=== PATIENT | female | born 1980 | race Caucasian/White ===

== ENCOUNTER → 2016-10-02 | Outpatient (CLI) | payer BC ==
--- NOTE | 2016-10-02 17:49 | Diagnostic Imaging Report ---
EXAM: OB ultrasound. INDICATION: Dating. FINDINGS: There is a single intrauterine . The heart rate is 150 beats per minutes. The growth parameters are: Biparietal diameter: 16 weeks, 0 days Head circumference: 15 weeks, 6 days Abdominal circumference: 16 weeks, 2 days Femur length: 15 weeks, 4 days These average at: 16 weeks, 0 days. The MAGDY would be 03/19/17. This is concordant with LMP dating 15 weeks, 5 days. There is a posterior placenta seen that extends to the lower uterine segment. The cervix is 4.2 cm in length and is closed. There is a retroplacental hypoechoic lesion measuring 2.2 x 1.5 x 2.3 cm. No internal vascularity is seen. This is concerning for retroplacental hemorrhage. IMPRESSION: 1. Live intrauterine . 2. There is a 3.2 cm hypoechoic lesion posterior to the placenta concerning for retroplacental hemorrhage of indeterminate age. The results were called to Dr. Terry and voice message was left about the findings (by Dr. Tinoco) prior to dictation. Report faxed to Dr. Terry at 5:48 p.m. 10/02/2016/cb Dictated by: Dictated on workstation # [id number]
== END ==
LOC: RAD 16:22
PROVIDERS: ATTEND Obstetrics & Gynecology
DX: O26.841 Uterine size-date discrepancy, first trimester (principal)
CPT/HCPCS: 76805

== ENCOUNTER → 2016-10-09 | Outpatient (CLI) | payer BC ==
--- NOTE | 2016-10-09 18:11 | Diagnostic Imaging Report ---
INDICATION: Subchorionic hemorrhage. EXAMINATION: OB sonogram 14-40 weeks 10/09/2016. COMPARISON: Correlation made to the previous sonogram dated 10/02/2016. TECHNIQUE: Multiple real-time grayscale images were obtained over the gravid uterus. FINDINGS: The previously noted hypoechoic area posterior to the placenta is once again seen. It today measures 2.6 x 2.3 x 1.5 cm in size previously measuring 2.3 cm in greatest dimension. Overall, it demonstrates mild interval increase in size. It is more hyperechoic on today's examination. No new lesions identified. The maternal cervix is 4.6 cm in length. The tip of the placenta is approximately 1.9 cm from the internal cervical os. Again noted is a single intrauterine with a heart rate of approximately 140 beats per minute. Placenta is posterior. IMPRESSION: 1. Limited evaluation. Hyperechoic lesion noted posterior to the placenta has slightly increased in size. It is most likely a subchorionic hemorrhage. Continued short-term interval followup is recommended to exclude continued increase in size or other lesions. 2. Low-lying placental tip. Biometrical measurements are as follows: Biparietal 3.63 cm, age 17 weeks 1 days. Head circumference 13.74 cm, age 17 weeks 2 days. Abdominal circumference 10.47 cm, age 16 weeks 3 days. Femur length 2.02 cm, age 16 weeks 1 days. Sonographic estimate age: 16 weeks 6 days. Sonographic estimated date of delivery: 03/20/2017. Estimated Weight: 153 gm (+/- 22 gm). LMP percentile: 21%. heart rate: 140 beats per minute. number: 1 of 1. Dictated by: Dictated on workstation # [id number]
== END ==
LOC: RAD 17:09
PROVIDERS: ATTEND Obstetrics & Gynecology
DX: O46.92 Antepartum hemorrhage, unspecified, second trimester (principal); Z3A.17 17 weeks gestation of pregnancy
CPT/HCPCS: 76805

== ENCOUNTER 2017-03-13 06:09 | Inpatient (IN) | payer BC ==
[2017-03-13] VITALS (47 sets, daily range): BP systolic 105–146; BP diastolic 61–94
[~2017-03-13] VITALS: Ht 157.5 cm; Wt 71.7 kg
[2017-03-13] MEDS ORDERED: LEVO25TA2 PO (06:16)
[2017-03-13] MEDS ORDERED: PREN-142 PO (06:16)
[2017-03-13] MEDS ORDERED: FERR-84 PO (06:16)
[2017-03-13] MEDS ORDERED: OXYTOCIN/NORMAL SALINE 500 ML IV SCH ×2 (06:18→20:16)
[2017-03-13] MEDS ORDERED: MINERAL OIL CONCENTRATE 99.9% 15 ML UDC TOP PRN (06:30)
[2017-03-13] MEDS ORDERED: MISOPROSTOL 100 MCG (CYTOTEC) TAB PO ONE (06:45)
[2017-03-13] MEDS ORDERED: fentaNYL INJECTION 100 MCG/2 ML AMP IVP PRN (06:45)
[2017-03-13 06:47] LABS: BILIRUBIN,URINE NEGATIVE (NEGATIVE); KETONES,URINE NEGATIVE (NEGATIVE); LEUKOCYTE ESTERASE ,URINE NEGATIVE (NEGATIVE); NITRITE,URINE NEGATIVE (NEGATIVE); PH,URINE 7 (5-9); PROTEIN,URINE NEGATIVE (NEGATIVE); UROBILINOGEN,URINE NORMAL (NORMAL)
[2017-03-13] MEDS: D5 LR IV SOLUTION 1,000 ML IV SCH ×2 (06:48→12:44)
[2017-03-13 06:49] LABS: BASOPHILS % (AUTO) 0 % (0-10); EOSINOPHILS # (AUTO) 0.4 10^3/uL (0.0-0.3); EOSINOPHILS % (AUTO) 4 % (0-10); LYMPHOCYTES # (AUTO) 2.2 X 10^3 (1.0-4.0); LYMPHOCYTES % (AUTO) 19 % (12-44); MEAN CORPUSCULAR HEMOGLOBIN 32 PG (25-34); MEAN CORPUSCULAR HGB CONC 34 G/DL (32-36); MEAN CORPUSCULAR VOLUME 94 FL (80-99); MEAN PLATELET VOLUME 9.9 FL (7.4-10.4); MONOCYTES % (AUTO) 9 % (0-12); NEUTROPHILS # (AUTO) 7.9 X 10^3 (1.8-7.8); NEUTROPHILS % (AUTO) 69 % (42-75); PLATELET COUNT 308 10^3/uL (130-400); RED CELL DISTRIBUTION WIDTH 14.5 % (10.0-14.5); WHITE BLOOD COUNT 11.4 10^3/uL (4.3-11.0)
[2017-03-13 07:07] LABS: ALANINE AMINOTRANSFERASE 13 U/L (0-55); ALBUMIN 3.6 GM/DL (3.2-4.5); ANION GAP 14 MMOL/L (5-14); ASPARTATE AMINO TRANSFERASE 20 U/L (5-34); BILIRUBIN,TOTAL 0.3 MG/DL (0.1-1.0); BLOOD UREA NITROGEN 7 MG/DL (7-18); BUN/CREATININE RATIO 9; CALCIUM 9.8 MG/DL (8.5-10.1); CARBON DIOXIDE 18 MMOL/L (21-32); CHLORIDE 107 MMOL/L (98-107); CREATININE SERUM 0.74 MG/DL (0.60-1.30); GFR ESTIMATED > 60; GLUCOSE 100 MG/DL (70-105); LACTATE DEHYDROGENASE 156 U/L (125-220); POTASSIUM 3.6 MMOL/L (3.6-5.0); SODIUM 139 MMOL/L (135-145); TOTAL PROTEIN 6.7 GM/DL (6.4-8.2); URIC ACID 5.6 MG/DL (2.6-7.2)
[2017-03-13 07:18] LABS: WBC,URINE RARE /HPF
[2017-03-13] MEDS ORDERED: INFLUENZA TRIvalent 2017-2018 0.5 ML/45 MCG SYR IM ONE (10:00)
[2017-03-13] MEDS ORDERED: LACTATED RINGERS 1,000 ML IV ONE ×2 (10:56→11:52)
[2017-03-13] MEDS ORDERED: SUFENTA 0.6MCG/ML BUPIVA 0.125 100 ML ONE (11:01)
[2017-03-13] MEDS ORDERED: fentaNYL INJECTION 100 MCG/2 ML AMP ONE ×2 (11:15→20:06)
[2017-03-13] MEDS ORDERED: BUPIVACAINE 0.25% 30 ML (SENSORCAINE) VIAL ONE (11:15)
[2017-03-13] MEDS ORDERED: EPIDURAL (SUFENTA 0.6MCG/ML BUPIVA 0.125%) 100 ML BAG EPI SCH (12:00)
[2017-03-13] MEDS ORDERED: CATHETER FLUSH 10 ML SYR IV PRN (12:00)
[2017-03-13] MEDS ORDERED: NALOXONE 0.4 MG/ML 1 ML (NARCAN) VIAL IV PRN (12:00)
[2017-03-13] MEDS ORDERED: diphenhydrAMINE 50 MG/ML INJ (BENADRYL) IV PRN (12:00)
[2017-03-13] MEDS ORDERED: METOCLOPRAMIDE INJ 10 MG/2 ML (REGLAN) ONE ×2 (12:57→19:07)
[2017-03-13] MEDS ORDERED: CITRIC ACID/SOB CIT (BICITRA) 30 ML UDC ONE ×2 (12:57→19:07)
[2017-03-13] MEDS ORDERED: FAMOTIDINE 20MG/2ML IV (PEPCID) ONE ×2 (12:58→19:07)
[2017-03-13] MEDS ORDERED: ceFAZolin 2 GM/50 ML NS 50 ML ONE ×2 (12:58→19:07)
[2017-03-13] MEDS ORDERED: NS (IVPB) 0 ML ONE ×3 (13:00→13:05)
[2017-03-13] MEDS ORDERED: AZITHROMYCIN 500 MG (ZITHROMAX) VIAL ONE ×2 (13:00→19:10)
[2017-03-13] MEDS ORDERED: AZITHROMYCIN INJECTION 500 MG in NS (IVPB) 250 ML IV ONE (13:15)
[2017-03-13] MEDS ORDERED: ceFAZolin 2 GM/50 ML NS 50 ML IV ONE ×2 (13:15→18:00)
[2017-03-13] MEDS ORDERED: LACTATED RINGERS 1,000 ML IV PRN (13:47)
[2017-03-13] MEDS ORDERED: METOCLOPRAMIDE INJ 10 MG/2 ML (REGLAN) IV ONE (14:00)
[2017-03-13] MEDS ORDERED: CATHETER FLUSH 10 ML SYR IV SCH ×2 (14:00→22:00)
[2017-03-13] MEDS ORDERED: FAMOTIDINE 20MG/2ML IV (PEPCID) IV ONE (14:00)
[2017-03-13] MEDS ORDERED: CITRIC ACID/SOB CIT (BICITRA) 30 ML UDC PO ONE (14:00)
[2017-03-13] MEDS: ONDANSETRON 4 MG/2 ML (SDV) Z0FRAN IV PRN ×2 (14:22→19:31)
--- NOTE | 2017-03-13 18:23 | Progress Note-Standard ---
Standard Progress Note Progress Notes/Assess & Plan Date Seen by Provider: Mar 13, 2017 Time Seen by Provider: 08:45 Progress/Assessment & Plan patient was admitted this morning for induction of labor due to mild preeclampsia. she received 1 dose of oral Cytotec and then had artificial rupture of membranes with clear fluid. she has had regular contractions with cervical dilation continuing. she did have an epidural placed and had resultant hypotension causing late decelerations. However this didn't follow-up with good return to baseline. However she has been 8 cm for 3 hours. We did start Pitocin but after approximately 1 hour on Pitocin she had a long prolonged late deceleration and a long contraction. Pitocin was discontinued. I am having to proceed with another emergency so the Pitocin will be left off and patient monitored for decelerations. Plan will likely be to proceed with primary C- section due to arrested dilatation despite adequate contractions, and intolerance to labor. She had not required antihypertensives during labor though her blood pressures have been labile. Laboratory Tests Test 03/13/17 06:30 Range/Units White Blood Count 11.4 H 4.3-11.0 10^3/uL Red Blood Count 3.40 L 4.35-5.85 10^6/uL Hemoglobin 10.7 L 11.5-16.0 G/DL Hematocrit 32 L 35-52 % Mean Corpuscular Volume 94 80-99 FL Mean Corpuscular Hemoglobin 32 25-34 PG Mean Corpuscular Hemoglobin Concent 34 32-36 G/DL Red Cell Distribution Width 14.5 10.0-14.5 % Platelet Count 308 130-400 10^3/uL Mean Platelet Volume 9.9 7.4-10.4 FL Neutrophils (%) (Auto) 69 42-75 % Lymphocytes (%) (Auto) 19 12-44 % Monocytes (%) (Auto) 9 0-12 % Eosinophils (%) (Auto) 4 0-10 % Basophils (%) (Auto) 0 0-10 % Neutrophils # (Auto) 7.9 H 1.8-7.8 X 10^3 Lymphocytes # (Auto) 2.2 1.0-4.0 X 10^3 Monocytes # (Auto) 1.0 0.0-1.0 X 10^3 Eosinophils # (Auto) 0.4 H 0.0-0.3 10^3/uL Basophils # (Auto) 0.0 0.0-0.1 10^3/uL Urine Color YELLOW Urine Clarity CLEAR Urine pH 7 5-9 Urine Specific [place] 1.005 L 1.016-1.022 Urine Protein NEGATIVE NEGATIVE Urine Glucose (UA) NEGATIVE NEGATIVE Urine Ketones NEGATIVE NEGATIVE Urine Nitrite NEGATIVE NEGATIVE Urine Bilirubin NEGATIVE NEGATIVE Urine Urobilinogen NORMAL NORMAL MG/DL Urine Leukocyte Esterase NEGATIVE NEGATIVE Urine RBC (Auto) 2+ H NEGATIVE Urine RBC RARE /HPF Urine WBC RARE /HPF Urine Squamous Epithelial Cells 5-10 /HPF Urine Crystals NONE /LPF Urine Bacteria TRACE /HPF Urine Casts NONE /LPF Urine Mucus NEGATIVE /LPF Urine Culture Indicated NO Sodium Level 139 135-145 MMOL/L Potassium Level 3.6 3.6-5.0 MMOL/L Chloride Level 107 98-107 MMOL/L Carbon Dioxide Level 18 L 21-32 MMOL/L Anion Gap 14 5-14 MMOL/L Blood Urea Nitrogen 7 7-18 MG/DL Creatinine 0.74 0.60-1.30 MG/DL Estimat Glomerular Filtration Rate > 60 BUN/Creatinine Ratio 9 Glucose Level 100 70-105 MG/DL Uric Acid 5.6 2.6-7.2 MG/DL Calcium Level 9.8 8.5-10.1 MG/DL Total Bilirubin 0.3 0.1-1.0 MG/DL Aspartate Amino Transf (AST/SGOT) 20 5-34 U/L Alanine Aminotransferase (ALT/SGPT) 13 0-55 U/L Alkaline Phosphatase 156 H 40-136 U/L Lactate Dehydrogenase 156 125-220 U/L Total Protein 6.7 6.4-8.2 GM/DL Albumin 3.6 3.2-4.5 GM/DL We'll proceed with primary . Risks include but are not limited to bleeding, infection, injury to bowel bladder and ureter. We will use prophylactic Ancef and Zithromax as she has been ruptured. Consents have been signed. JODEE THORPE DO Mar 13, 2017 6:23 pm
[2017-03-13] MEDS ORDERED: NS (IVPB) 250 ML ONE (19:11)
[2017-03-13] MEDS ORDERED: BUPIVACAINE 0.5% 30 ML (SENSORCAINE) VIAL ONE (20:06)
[2017-03-13] MEDS ORDERED: LIDOCAINE PF 2% 5 ML (XYLOCAINE) VIAL ONE (20:06)
[2017-03-13] MEDS ORDERED: D5 LR IV SOLUTION 1,000 ML IV SCH (20:16)
--- NOTE | 2017-03-13 20:19 | Cesarean Section Operative ---
Procedure Procedure Note Pre-operative Diagnosis: Taty Dailey is a 36 /Para 1 /0 , Gestational Age mild preeclampsia, arrest of active phase, intolerance to labor Post-operative Diagnosis: same Procedure: primary low transverse section Physician: TATY THORPE Staffing Rn: ELI Colvin Estimated blood loss: 600 mL Disposition: stable Findings: Viable male , Apgars 8/9, weight 7#12oz, intact placenta, 3vc, normal appearing uterus, tubes, and ovaries. nuchal cord delivered through Indications:Taty Dailey is a 36 /Para 1 /0 ,Gestational Age mild preeclampsia, arrest of active phase, intolerance to labor Procedure Details: The patient was seen in pre-op and the procedure was discussed with the patient in full, including the risks, benefits, and alternatives. All questions were answered. The patient was taken to the operating room and a time out was performed, verifying patient and procedure. After spinal anesthesia was placed by our anesthesia colleagues, the patient was placed in the dorsal supine with leftward tilt for uterine displacement.~ Her abdomen was then prepped and draped in the typical sterile fashion. A Pfannenstiel skin incision was made using a scalpel and carried down through the underlying fascia. The fascia was incised in the midline and tented up using Florina clamps. On both the inferior and superior fascia side the rectus muscle was dissected off bluntly and sharply using Pride scissors. The peritoneum was identified and entered bluntly in the midline. This was then stretched laterally using manual strength. After entering the abdominal cavity and confirming lack of intraperitoneal adhesions, a large Armond retractor was placed and the lower uterine segment was visualized. The bladder was edematous and not completely emptied due to pressure from the head. A scalpel was utilized to make a low transverse uterine incision. The 's head was grasped and brought to the level of the incision. was delivered without difficulty with assistance of the silastic suction. Mouth and nares were suctioned with bulb suction. After the umbilical cord was clamped and cut, the was handed off to the pediatric staff. A sample of cord blood was then obtained. The placenta was delivered intact via uterine massage. The uterus was cleared of all clots and debris. The uterine incision was closed using 0 Vicryl in a running locked fashion. A second imbricated layer was placed using 0 Vicryl in a running fashion as well. The bilateral tubes and ovaries appeared normal. Theabdominal gutters were cleared of all clots and debris. A final check of the uterine incision showed it to be hemostatic. Intercede was placed. The peritoneum was closed using 3-0 Vicryl in a running fashion. The fascia was closed with 0 Vicryl in a running fashion. The subcutaneous space was hemostatic , and irrigated. The subcutaneous space was closed with 3-0 Vicryl in several single interrupted stitches. The skin was then closed using 4-0 Monocryl in a running subcuticular fashion. The skin edges were reapproximated together and were hemostatic. A pressure dressing was applied. All sponge, lap and needle counts were correct at the end of the procedure per nursing. Vitals - Labs Vital Signs - I&O Vital Signs Date Time Temp Pulse Resp B/P (MAP) Pulse Ox O2 Delivery O2 Flow Rate FiO2 03/13/17 19:00 94 18 124/79 Room Air 03/13/17 18:45 90 18 120/72 Room Air 03/13/17 18:30 82 18 128/72 Room Air 03/13/17 18:15 98.8 81 18 119/71 Room Air 03/13/17 18:00 83 18 109/61 100 Room Air 03/13/17 17:45 98.9 88 18 114/70 97 Room Air 03/13/17 17:30 85 18 124/75 100 Room Air 03/13/17 17:15 85 18 124/76 95 Room Air 03/13/17 17:00 100 18 119/76 99 Room Air 03/13/17 16:45 82 18 123/73 99 Room Air 03/13/17 16:30 86 18 127/72 99 Room Air 03/13/17 16:15 99.0 88 18 113/68 100 Room Air 03/13/17 16:00 85 18 112/67 99 Room Air 03/13/17 15:45 85 18 113/64 99 Room Air 03/13/17 15:30 89 18 109/74 99 Room Air 03/13/17 15:15 99.1 85 18 109/68 99 Room Air 03/13/17 15:00 85 18 112/69 97 Room Air 03/13/17 14:45 86 18 117/69 97 Room Air 03/13/17 14:30 98.7 91 18 120/75 100 Room Air 03/13/17 14:15 91 18 99 Room Air 03/13/17 14:00 96 18 124/70 100 Room Air 03/13/17 13:45 98.0 90 18 123/69 100 Non Rebreather 10.00 03/13/17 13:30 82 18 123/76 100 Non Rebreather 10.00 03/13/17 13:15 89 18 110/69 100 Non Rebreather 10.00 03/13/17 13:00 94 18 117/74 100 Non Rebreather 10.00 03/13/17 12:45 97.6 94 18 121/73 100 Non Rebreather 10.00 03/13/17 12:30 80 18 121/74 100 Non Rebreather 10.00 03/13/17 12:15 113 18 100 Non Rebreather 10.00 03/13/17 12:00 85 18 105/64 98 Room Air 03/13/17 11:45 98.4 91 18 118/81 98 Room Air 03/13/17 11:41 129 18 124/71 100 Room Air 03/13/17 11:34 99 18 132/84 100 Room Air 03/13/17 11:32 91 18 141/84 100 Room Air 03/13/17 11:30 97 18 146/89 100 Room Air 03/13/17 11:30 86 18 140/67 Room Air 03/13/17 11:27 85 18 140/67 100 Room Air 03/13/17 11:23 96 18 130/81 Room Air 03/13/17 11:00 81 18 125/78 Room Air 03/13/17 10:30 99.1 82 18 128/86 Room Air 03/13/17 09:58 96 18 134/90 Room Air 03/13/17 09:30 102 18 132/94 Room Air 03/13/17 08:30 86 18 132/82 Room Air 03/13/17 08:00 98.1 96 18 121/77 Room Air 03/13/17 07:30 98.4 99 18 136/86 Room Air I & O 03/14/17 07:00 Intake Total 3000 ml Balance 3000 ml Labs Laboratory Tests 03/13/17 06:30: White Blood Count 11.4H, Red Blood Count 3.40L, Hemoglobin 10.7L, Hematocrit 32L , Mean Corpuscular Volume 94, Mean Corpuscular Hemoglobin 32, Mean Corpuscular Hemoglobin Concent 34, Red Cell Distribution Width 14.5, Platelet Count 308, Mean Platelet Volume 9.9, Neutrophils (%) (Auto) 69, Lymphocytes (%) (Auto) 19, Monocytes (%) (Auto) 9, Eosinophils (%) (Auto) 4, Basophils (%) (Auto) 0, Neutrophils # (Auto) 7.9H, Lymphocytes # (Auto) 2.2, Monocytes # (Auto) 1.0, Eosinophils # (Auto) 0.4H, Basophils # (Auto) 0.0, Urine Color YELLOW, Urine Clarity CLEAR, Urine pH 7, Urine Specific [place] 1.005L, Urine Protein NEGATIVE , Urine Glucose (UA) NEGATIVE, Urine Ketones NEGATIVE, Urine Nitrite NEGATIVE, Urine Bilirubin NEGATIVE, Urine Urobilinogen NORMAL, Urine Leukocyte Esterase NEGATIVE, Urine RBC (Auto) 2+H, Urine RBC RARE, Urine WBC RARE, Urine Squamous Epithelial Cells 5-10, Urine Crystals NONE, Urine Bacteria TRACE, Urine Casts NONE, Urine Mucus NEGATIVE, Urine Culture Indicated NO, Sodium Level 139, Potassium Level 3.6, Chloride Level 107, Carbon Dioxide Level 18L, Anion Gap 14 , Blood Urea Nitrogen 7, Creatinine 0.74, Estimat Glomerular Filtration Rate > 60, BUN/Creatinine Ratio 9, Glucose Level 100, Uric Acid 5.6, Calcium Level 9.8 , Total Bilirubin 0.3, Aspartate Amino Transf (AST/SGOT) 20, Alanine Aminotransferase (ALT/SGPT) 13, Alkaline Phosphatase 156H, Lactate Dehydrogenase 156, Total Protein 6.7, Albumin 3.6 TATY THORPE DO Mar 13, 2017 20:19
[2017-03-13] MEDS ORDERED: TETANUS,DIPTH,PERTUSS P/F (BOOSTRIX) 0.5 ML VIAL IM SCH (20:30)
[2017-03-13] MEDS ORDERED: HYDROmorphone (DILAUDID) 2 MG/ML VIAL IVP PRN (20:30)
[2017-03-13] MEDS ORDERED: MEASLES,MUMPS,RUBELLA 1 EA INJ SC SCH (20:30)
[2017-03-13] MEDS ORDERED: OXYTOCIN/NORMAL SALINE 500 ML IV ONE (20:36)
[2017-03-13] MEDS ORDERED: PHENYLEPHRINE 100 MCG/ML 10 ML (ANESTHESIA) SYR ONE (20:59)
[2017-03-13] MEDS ORDERED: ONDANSETRON 4 MG/2 ML (SDV) Z0FRAN ONE (20:59)
[2017-03-13] MEDS: DOCUSATE SODIUM 100 MG (COLACE) CAP PO SCH (21:00)
[2017-03-13] MEDS: KETOROLAC 30 MG/ML VIAL IVP SCH (21:12)
[2017-03-13] MEDS ORDERED: KETOROLAC 30 MG/ML VIAL IVP ONE (21:30)
[2017-03-13] MEDS ORDERED: morphine INJ 10 MG/ML 1ML (SYR OR VIAL) IVP PRN (21:30)
[2017-03-13] MEDS ORDERED: DOCU100C37 PO (21:30)
[2017-03-13] MEDS ORDERED: PROMETHAZINE INJ 25 MG/ML (PHENERGAN) AMP IVP ONE (21:30)
[2017-03-13] MEDS ORDERED: IBUP-1773 PO (21:30)
[2017-03-13] MEDS ORDERED: HYDR-3812 PO (21:30)
--- NOTE | 2017-03-13 21:32 | Discharge Inst-Women's Service ---
Discharge Inst-Women's Serv Depart Medication/Instructions New, Converted or Re-Newed RX: RX on Chart Final Diagnosis subclinical hypothyroidism preeclampsia advanced maternal age primary c section arrest of active phase intolerance to labor Consults/Follow Up Additional Follow Up: Yes (1 week for inc check an bp check) Activity Activity: Activity as Tolerated (no lifting over 25 lbs) Driving Instructions: No Driving for 1 Week NO SMOKING: NO SMOKING Nothing Inside Vagina: No Douching, No [place], No Tampons Diet Discharge Diet: No Restrictions Symptoms to Report to : Bleeding Excessive, Pain Increased, Fever Over 101 Degrees F, Vaginal Bleeding Increase, Cramps in Feet or Legs, Vaginal Discharge Foul For Any Problems or Questions: Contact Your Physician Skin/Wound Care Infection Signs and Symptoms: Increased Redness, Foul Odor of Wound, Increased Drainage, Skin Itchy or Has a Rash, Increased Swelling, Temperature Above 101 F Operative Area Clean and Dry: Keep Incision Clean/Dry Stitches/[place]/Dermabond: Dermabond Bathing Instructions: JODEE Syed DO Mar 13, 2017 21:32
[2017-03-14 00:15] VITALS: BP 103/68
[2017-03-14] MEDS: HYDROcodone/APAP 5 MG/325 MG (LORTAB) TAB PO PRN ×4 (00:25→18:33)
[2017-03-14] MEDS: KETOROLAC 30 MG/ML VIAL IVP SCH (02:52)
[2017-03-14 04:10] VITALS: BP 92/62
[2017-03-14 07:34] LABS: BASOPHILS % (AUTO) 0 % (0-10); EOSINOPHILS # (AUTO) 0.1 10^3/uL (0.0-0.3); EOSINOPHILS % (AUTO) 0 % (0-10); LYMPHOCYTES # (AUTO) 1.7 X 10^3 (1.0-4.0); LYMPHOCYTES % (AUTO) 8 % (12-44); MEAN CORPUSCULAR HEMOGLOBIN 31 PG (25-34); MEAN CORPUSCULAR HGB CONC 33 G/DL (32-36); MEAN CORPUSCULAR VOLUME 95 FL (80-99); MEAN PLATELET VOLUME 10.3 FL (7.4-10.4); MONOCYTES # (AUTO) 1.4 X 10^3 (0.0-1.0); MONOCYTES % (AUTO) 7 % (0-12); NEUTROPHILS # (AUTO) 18.1 X 10^3 (1.8-7.8); NEUTROPHILS % (AUTO) 85 % (42-75); PLATELET COUNT 261 10^3/uL (130-400); RED CELL DISTRIBUTION WIDTH 14.4 % (10.0-14.5); WHITE BLOOD COUNT 21.3 10^3/uL (4.3-11.0)
--- NOTE | 2017-03-14 08:39 | Progress Note-Standard ---
Standard Progress Note Progress Notes/Assess & Plan Date Seen by Provider: Mar 14, 2017 Time Seen by Provider: 08:37 Progress/Assessment & Plan this patient is without complaint. She is ambulating, tolerating by mouth well , has good pain control. this patient has not voided as of yet.Patient denies chest pain, denies shortness of breath, denies nausea vomiting. Vital Signs Date Time Temp Pulse Resp B/P (MAP) Pulse Ox O2 Delivery O2 Flow Rate FiO2 03/14/17 04:10 97.3 85 18 92/62 95 Room Air 03/14/17 00:15 98.3 84 18 103/68 96 Room Air 03/13/17 20:21 101 18 123/73 Room Air 03/13/17 20:05 98 18 132/78 96 Room Air 03/13/17 20:00 96 18 122/75 Room Air 03/13/17 19:45 100 18 125/83 Room Air 03/13/17 19:30 103 18 119/81 Room Air 03/13/17 19:15 99.9 91 18 119/71 Room Air 03/13/17 19:00 94 18 124/79 Room Air 03/13/17 18:45 90 18 120/72 Room Air 03/13/17 18:30 82 18 128/72 Room Air 03/13/17 18:15 98.8 81 18 119/71 Room Air 03/13/17 18:00 83 18 109/61 100 Room Air 03/13/17 17:45 98.9 88 18 114/70 97 Room Air 03/13/17 17:30 85 18 124/75 100 Room Air 03/13/17 17:15 85 18 124/76 95 Room Air 03/13/17 17:00 100 18 119/76 99 Room Air 03/13/17 16:45 82 18 123/73 99 Room Air 03/13/17 16:30 86 18 127/72 99 Room Air 03/13/17 16:15 99.0 88 18 113/68 100 Room Air 03/13/17 16:00 85 18 112/67 99 Room Air 03/13/17 15:45 85 18 113/64 99 Room Air 03/13/17 15:30 89 18 109/74 99 Room Air 03/13/17 15:15 99.1 85 18 109/68 99 Room Air 03/13/17 15:00 85 18 112/69 97 Room Air 03/13/17 14:45 86 18 117/69 97 Room Air 03/13/17 14:30 98.7 91 18 120/75 100 Room Air 03/13/17 14:15 91 18 99 Room Air 03/13/17 14:00 96 18 124/70 100 Room Air 03/13/17 13:45 98.0 90 18 123/69 100 Non Rebreather 10.00 03/13/17 13:30 82 18 123/76 100 Non Rebreather 10.00 03/13/17 13:15 89 18 110/69 100 Non Rebreather 10.00 03/13/17 13:00 94 18 117/74 100 Non Rebreather 10.00 03/13/17 12:45 97.6 94 18 121/73 100 Non Rebreather 10.00 03/13/17 12:30 80 18 121/74 100 Non Rebreather 10.00 03/13/17 12:15 113 18 100 Non Rebreather 10.00 03/13/17 12:00 85 18 105/64 98 Room Air 03/13/17 11:45 98.4 91 18 118/81 98 Room Air 03/13/17 11:41 129 18 124/71 100 Room Air 03/13/17 11:34 99 18 132/84 100 Room Air 03/13/17 11:32 91 18 141/84 100 Room Air 03/13/17 11:30 97 18 146/89 100 Room Air 03/13/17 11:30 86 18 140/67 Room Air 03/13/17 11:27 85 18 140/67 100 Room Air 03/13/17 11:23 96 18 130/81 Room Air 03/13/17 11:00 81 18 125/78 Room Air 03/13/17 10:30 99.1 82 18 128/86 Room Air 03/13/17 09:58 96 18 134/90 Room Air 03/13/17 09:30 102 18 132/94 Room Air vital signs are stable. Patient is afebrile. Laboratory Tests 03/14/17 06:53 hemoglobin is 8.7 we will start some iron The abdomen is benign. Incision is clean dry and intact. Extremities show no clubbing cyanosis. There is no Homans sign. Assessment and plan is operative day number 1 status post primary doing well. this patient is mildly anemic plan we will start iron replacement. Otherwise routine convalescence care today JUAN JOSÉ MYERS MD Mar 14, 2017 8:39 am
[2017-03-14] MEDS ORDERED: IBUPROFEN 600 MG (MOTRIN) TAB PO ONE ×2 (09:02→15:03)
[2017-03-14 10:20] VITALS: BP 102/70
[2017-03-14] MEDS: DOCUSATE SODIUM 100 MG (COLACE) CAP PO SCH ×2 (10:22→21:03)
[2017-03-14] MEDS: FERROUS SULF 325 MG (IRON) TAB PO SCH (10:23)
[2017-03-14] MEDS: IBUPROFEN 600 MG (MOTRIN) TAB PO SCH ×3 (10:23→21:03)
--- NOTE | 2017-03-14 11:01 | Anesthesia-Regional Post-Op ---
Regional Patient Condition Mental Status: Alert, Oriented x3 Circulation: Same as Pre-Op Headache: Absent Sensation: Full Recovery Motor Block: Absent Post Op Complications Complications None Follow Up Care/Instructions Patient Instructions None needed. Anesthesia/Patient Condition Patient is doing well, no complaints, stable vital signs, no apparent adverse anesthesia problems. No complications reported per nursing. CESAR SCHULTZ CRNA Mar 14, 2017 11:01
[2017-03-14 13:13] VITALS: BP 112/79
[2017-03-14 18:33] VITALS: BP 106/64
[2017-03-14 21:03] VITALS: BP 135/87
[2017-03-15 03:27] VITALS: BP 112/75
[2017-03-15] MEDS: IBUPROFEN 600 MG (MOTRIN) TAB PO SCH ×2 (03:27→08:41)
[2017-03-15] MEDS ORDERED: FERROUS SULF 325 MG (IRON) TAB PO SCH (07:00)
[2017-03-15 08:00] VITALS: BP 125/84
--- NOTE | 2017-03-15 08:32 | Progress Note-Standard ---
Standard Progress Note Progress Notes/Assess & Plan Date Seen by Provider: Mar 15, 2017 Time Seen by Provider: 08:30 Progress/Assessment & Plan this patient is without complaint. She is ambulating, tolerating by mouth well , has good pain control. this patient has not voided as of yet.Patient denies chest pain, denies shortness of breath, denies nausea vomiting. Vital Signs Date Time Temp Pulse Resp B/P (MAP) Pulse Ox O2 Delivery O2 Flow Rate FiO2 03/14/17 04:10 97.3 85 18 92/62 95 Room Air 03/14/17 00:15 98.3 84 18 103/68 96 Room Air 03/13/17 20:21 101 18 123/73 Room Air 03/13/17 20:05 98 18 132/78 96 Room Air 03/13/17 20:00 96 18 122/75 Room Air 03/13/17 19:45 100 18 125/83 Room Air 03/13/17 19:30 103 18 119/81 Room Air 03/13/17 19:15 99.9 91 18 119/71 Room Air 03/13/17 19:00 94 18 124/79 Room Air 03/13/17 18:45 90 18 120/72 Room Air 03/13/17 18:30 82 18 128/72 Room Air 03/13/17 18:15 98.8 81 18 119/71 Room Air 03/13/17 18:00 83 18 109/61 100 Room Air 03/13/17 17:45 98.9 88 18 114/70 97 Room Air 03/13/17 17:30 85 18 124/75 100 Room Air 03/13/17 17:15 85 18 124/76 95 Room Air 03/13/17 17:00 100 18 119/76 99 Room Air 03/13/17 16:45 82 18 123/73 99 Room Air 03/13/17 16:30 86 18 127/72 99 Room Air 03/13/17 16:15 99.0 88 18 113/68 100 Room Air 03/13/17 16:00 85 18 112/67 99 Room Air 03/13/17 15:45 85 18 113/64 99 Room Air 03/13/17 15:30 89 18 109/74 99 Room Air 03/13/17 15:15 99.1 85 18 109/68 99 Room Air 03/13/17 15:00 85 18 112/69 97 Room Air 03/13/17 14:45 86 18 117/69 97 Room Air 03/13/17 14:30 98.7 91 18 120/75 100 Room Air 03/13/17 14:15 91 18 99 Room Air 03/13/17 14:00 96 18 124/70 100 Room Air 03/13/17 13:45 98.0 90 18 123/69 100 Non Rebreather 10.00 03/13/17 13:30 82 18 123/76 100 Non Rebreather 10.00 03/13/17 13:15 89 18 110/69 100 Non Rebreather 10.00 03/13/17 13:00 94 18 117/74 100 Non Rebreather 10.00 03/13/17 12:45 97.6 94 18 121/73 100 Non Rebreather 10.00 03/13/17 12:30 80 18 121/74 100 Non Rebreather 10.00 03/13/17 12:15 113 18 100 Non Rebreather 10.00 03/13/17 12:00 85 18 105/64 98 Room Air 03/13/17 11:45 98.4 91 18 118/81 98 Room Air 03/13/17 11:41 129 18 124/71 100 Room Air 03/13/17 11:34 99 18 132/84 100 Room Air 03/13/17 11:32 91 18 141/84 100 Room Air 03/13/17 11:30 97 18 146/89 100 Room Air 03/13/17 11:30 86 18 140/67 Room Air 03/13/17 11:27 85 18 140/67 100 Room Air 03/13/17 11:23 96 18 130/81 Room Air 03/13/17 11:00 81 18 125/78 Room Air 03/13/17 10:30 99.1 82 18 128/86 Room Air 03/13/17 09:58 96 18 134/90 Room Air 03/13/17 09:30 102 18 132/94 Room Air vital signs are stable. Patient is afebrile. Laboratory Tests 03/14/17 06:53 hemoglobin is 8.7 we will start some iron The abdomen is benign. Incision is clean dry and intact. Extremities show no clubbing cyanosis. There is no Homans sign. Assessment and plan is operative day number 1 status post primary doing well. this patient is mildly anemic plan we will start iron replacement. Otherwise routine convalescence care today Wednesday, March 15, 2017 Patient is without complaint. She is ambulating, voiding, tolerating by mouth well, has good pain control. Patient is requesting discharge home. Vital Signs Date Time Temp Pulse Resp B/P (MAP) Pulse Ox O2 Delivery O2 Flow Rate FiO2 03/15/17 08:00 98.2 95 18 125/84 100 Room Air 03/15/17 03:27 98.4 106 18 112/75 98 Room Air 03/14/17 21:03 98.7 105 18 135/87 98 Room Air 03/14/17 18:33 97.6 90 18 106/64 97 Room Air 03/14/17 13:13 97.7 96 18 112/79 96 Room Air 03/14/17 10:20 97.9 102 18 102/70 97 Room Air Vital signs are stable. Patient is afebrile. Fundus is firm below the umbilicus and nontender. There is mild tympany. Bowel sounds are present. Incision is clean dry and intact. Extremities show no clubbing cyanosis. There is no Homans sign. There is fairly notable pretibial pitting edema but this appears to be within the normal range. Assessment and plan post operative day number 2 status post primary at term. Plan is for discharge home with follow-up in clinic. Final Diagnosis term operative delivery JUAN JOSÉ MYERS MD Mar 15, 2017 8:32 am
[2017-03-15] MEDS: DOCUSATE SODIUM 100 MG (COLACE) CAP PO SCH (08:40)
[2017-03-15] MEDS: FERROUS SULF 325 MG (IRON) TAB PO SCH (08:40)
[2017-03-15 13:50] VITALS: BP 117/73
[2017-03-15 14:25] VITALS: BP 117/73
== END 2017-03-15 14:25 | disposition home or self-care (01) | DRG 766 ==
LOC: LDRP 06:09
PROVIDERS: ADMIT Obstetrics & Gynecology; ATTEND Obstetrics & Gynecology
PROC: 3E0P7GC Introduction of Other Therapeutic Substance into Female Reproductive, Via Natural or Artificial Opening (ICD-10-PCS; 2017-03-13)
PROC: 10D00Z1 Extraction of Products of Conception, Low, Open Approach (ICD-10-PCS; principal; 2017-03-13 20:30)
DX: O14.04 Mild to moderate pre-eclampsia, complicating childbirth (principal); O09.513 Supervision of elderly primigravida, third trimester; O76 Abnormality in fetal heart rate and rhythm complicating labor and delivery; O69.81X0 Labor and delivery complicated by cord around neck, without compression, not applicable or unspecified; O99.03 Anemia complicating the puerperium; D64.9 Anemia, unspecified; Z3A.38 38 weeks gestation of pregnancy; Z37.0 Single live birth; Z23 Encounter for immunization
CPT/HCPCS: 36415; 80053; 81000; 83615; 84550; 85025; 86850; 86900; 86901; 87088; 90707; 94664